=== PATIENT | female | born 1990 | race Caucasian/White ===

== ENCOUNTER 2016-11-19 10:37 | Inpatient (IN) ==
[2016-11-19] MEDS ORDERED: PEPCID PO ONE (17:28)
[2016-11-19] MEDS ORDERED: BRETHINE SUBQ PRN (17:28)
[2016-11-19] MEDS ORDERED: AMBIEN PO PRN (17:28)
[2016-11-19] MEDS ORDERED: TYLENOL PO PRN (17:28)
[2016-11-19] MEDS ORDERED: STADOL IV PRN ×2 (17:28)
[2016-11-19] MEDS ORDERED: PITOCIN 30 UNITS/LR 30 UNITS/500 ML IV.SOLN IV SCH (17:28)
[2016-11-19] MEDS ORDERED: KEFZOL 1 GM/D5W 1 GM/50 ML IVPB IV PRN (17:28)
[2016-11-19] MEDS ORDERED: REGLAN PO ONE (17:28)
[2016-11-19] MEDS ORDERED: LR 1,000 ML IV ONE (17:28)
[2016-11-19] MEDS ORDERED: PEPCID IV PRN (17:28)
[2016-11-19] MEDS ORDERED: PEPCID PO PRN (17:28)
[2016-11-19] MEDS ORDERED: CYTOTEC PO ONE (18:00)
[2016-11-19 18:48] LABS: MANUAL DIFF NEEDED? NO
[2016-11-19 18:52] LABS: URINE SOURCE VOIDED
[2016-11-19 18:58] LABS: BILIRUBIN URINE NEGATIVE (NEGATIVE); BLOOD URINE NEGATIVE (NEGATIVE); CLARITY CLEAR (CLEAR); COLOR YELLOW; GLUCOSE URINE NEGATIVE (NEGATIVE); LEUKOCYTES URINE NEGATIVE (NEGATIVE); NITRITE URINE NEGATIVE (NEGATIVE); PH URINE 6.5; PROTEIN URINE NEGATIVE (NEGATIVE); SP GRAVITY URINE 1.005; UROBILINOGEN URINE NORMAL
[2016-11-19 19:01] LABS: UR AMPHETAMINES QUAL NONE DETECTED (NONE DETECT); UR BARBITUATES QUAL NONE DETECTED (NONE DETECT); UR BENZODIAZEPIN QUAL NONE DETECTED (NONE DETECT); UR CANNABINOIDS QUAL NONE DETECTED (NONE DETECT); UR COCAINE QUAL NONE DETECTED (NONE DETECT); UR MDMA QUAL NONE DETECTED (NONE DETECT); UR METHADONE QUAL NONE DETECTED (NONE DETECT); UR METHAMPHETAMINE QUAL NONE DETECTED (NONE DETECT); UR OPIATES QUAL NONE DETECTED (NONE DETECT); UR OXYCODONE QUAL NONE DETECTED (NONE DETECT); UR PCP QUAL NONE DETECTED (NONE DETECT); UR TCA QUAL NONE DETECTED (NONE DETECT)
[2016-11-19 19:04] LABS: BASO% 0.3 % (0.0-0.8); HEMATOCRIT 34.2 % (37.0-47.0); HEMOGLOBIN 11.7 g/dL (12.0-16.0); IMM GRAN# 0.12 X1000 (0.0-0.04); IMM GRAN% 1.2 % (0.0-0.5); LYMPH# 2.48 X1000 (1.2-3.4); LYMPH% 24.9 % (20.5-51.1); MCH 28.5 PG (27-31); MCHC 34.2 g/dL (33-37); MCV 83.2 FL (81-99); MONO% 9.1 % (1.7-9.3); MPV 11.1 FL (7.4-10.4); NEUT% 63.5 % (42.2-75.2); PLT 195 X1000 (130-400); RBC 4.11 XMIL (4.2-5.4)
[2016-11-19] MEDS: CYTOTEC PO SCH (22:36)
[2016-11-20] MEDS: ZOFRAN IV PRN ×3 (00:18→11:24)
[2016-11-20] MEDS: STADOL IV PRN ×6 (00:18→11:24)
[2016-11-20] MEDS: CYTOTEC PO SCH (02:44)
[2016-11-20] MEDS: LR 1,000 ML IV SCH ×2 (07:37→18:00)
[2016-11-20] MEDS ORDERED: FENTANYL-BUPIV-NS 2 MCG-0.1% 200 ML EPIDURAL PRN (10:31)
[2016-11-20] MEDS ORDERED: XYLOCAINE-MPF 1% INJ ONE (10:41)
[2016-11-20] MEDS ORDERED: MINERAL OIL PO ONE (10:41)
--- NOTE | 2016-11-20 11:06 | HISTORY AND PHYSICAL ---
CHIEF COMPLAINT: Scheduled induction of labor. HISTORY OF PRESENT ILLNESS: Patient is a 26-year-old, G1 at 40 weeks and 2 days by 12-week ultrasound, with a due date of 11/18/2016, who presented last night for Cytotec induction of labor. She was checked in the office yesterday and was noted to be 1 cm with thick cervix and -3 station. She strongly wanted induction. She was counseled about her risks and so she came in the same night for Cytotec. Overnight, she has changed to approximately 2 cm this morning, but has effaced more significantly to 50% and is now -2 station. She denies complaints at this time. Obstetrically, the contractions are more consistent with cramps, but she will desire an epidural in the future. The patient did have an episode this morning where she picked at a lesion on her lip. She states the lesion has been there for several years, but it has been bleeding significantly despite holding pressure. Suspect hemangioma. PAST MEDICAL HISTORY: Migraines without aura. OBSTETRICAL HISTORY: First . PAST SURGICAL HISTORY: Negative. ALLERGIES: No known drug allergies. MEDICATIONS: vitamins and Pepcid AC as needed. FAMILY HISTORY: Heart disease in mother and her father. Diabetes in maternal grandmother. High blood pressure in maternal grandmother. Lung cancer in maternal uncle and paternal grandfather. Unsure ages. Colon cancer in paternal grandmother at age 80. SOCIAL HISTORY: She is a prior smoker "socially". Admitted to less than 2 packs per week and she quit in . Alcohol use occasional when not . Illicit drug use denies during . She used to use marijuana. She currently lives with the father of the baby and is unemployed. PERTINENT LABORATORIES: Group B strep is negative. She passed her Glucola at 118. RPR is nonreactive. Quad screen was low risk. UDS was negative on June 03. Pap smear was within normal limits. HIV was nonreactive. Blood type is O negative, antibody negative. The patient did get her RhoGAM on 08/28/2016, as well as her Tdap at the same time. Hepatitis B nonreactive. RPR nonreactive. Gonorrhea and chlamydia were negative. Urine culture was no growth. PHYSICAL EXAMINATION: VITAL SIGNS: Current vital signs had temperature 96.9 degrees, heart rate 64, respirations 20, blood pressure 109/65. NST is 110, moderate variability, and reactive. Contractions about every 2 minutes on Pitocin. GENERAL APPEARANCE: The patient is awake, alert, oriented, in no acute distress , white female. HEENT: Significant for an inferior edge of lower lip with approximately 1-2 mm bleeding blanchable area that responds to pressure but then continues to bleed afterwards. Suspicious for hemangioma. Now has Surgicel with cessation of active bleeding. HEENT: Otherwise, normal. CHEST: Respirations unlabored. ABDOMEN: Soft, gravid, and nontender. PELVIC: Cervix is 2 cm, 50%, -2. EXTREMITIES: No clubbing, cyanosis, or edema. ASSESSMENT AND PLAN: A 26-year-old, G1, at 40 weeks and 2 days, for induction of labor. 1. Hemangioma on lip. Will continue with Surgicel until all active bleeding stops. May try Dermabond if this does not work. 2. Ultimately plans epidural. May have upon request. GBS is negative. Will plan artificial rupture of membranes when cervix is more dilated. Patient states understanding. cc: Krystina Sumner MD MTDD
[2016-11-20] MEDS ORDERED: BENADRYL IV PRN (20:36)
[2016-11-20] MEDS ORDERED: MINERAL OIL PO PRN (20:36)
[2016-11-20] MEDS ORDERED: BOOSTRIX VACCINE IM ONE (20:36)
[2016-11-20] MEDS ORDERED: M-M-R II VACCINE SUBQ ONE (20:36)
[2016-11-20] MEDS ORDERED: CYTOTEC PO PRN (20:36)
[2016-11-20] MEDS ORDERED: PITOCIN IM PRN (20:36)
[2016-11-20] MEDS ORDERED: AMBIEN PO PRN (20:36)
[2016-11-20] MEDS ORDERED: PERI MEDS (DERMOPLAST/NUPERCAINAL/TUCKS) MISC PRN (20:36)
[2016-11-20] MEDS ORDERED: PITOCIN 30 UNITS/LR 30 UNITS/500 ML IV.SOLN IV ONE (20:36)
[2016-11-20] MEDS ORDERED: BENADRYL PO PRN (20:36)
[2016-11-20] MEDS ORDERED: PITOCIN 20 UNITS/LR 20 UNITS/1,000 ML IV.SOLN IV SCH (20:36)
[2016-11-20] MEDS ORDERED: HYDROXYZINE PO PRN (20:36)
[2016-11-20] MEDS ORDERED: HYDROXYZINE IM PRN (20:36)
[2016-11-20] MEDS ORDERED: XYLOCAINE-MPF 1% INJ PRN (20:36)
[2016-11-20] MEDS: MOTRIN PO PRN (21:22)
[2016-11-20] MEDS: NORCO-5 PO PRN (21:22)
[2016-11-20] MEDS: PERICOLACE PO SCH (21:23)
[2016-11-21] MEDS ORDERED: PEPCID PO ONE (03:14)
[2016-11-21] MEDS: NORCO-5 PO PRN ×2 (03:30→12:42)
[2016-11-21 05:28] LABS: HEMATOCRIT 28.9 % (37.0-47.0); HEMOGLOBIN 9.5 g/dL (12.0-16.0); MCH 27.7 PG (27-31); MCHC 32.9 g/dL (33-37); MCV 84.3 FL (81-99); MPV 10.9 FL (7.4-10.4); RBC 3.43 XMIL (4.2-5.4)
--- NOTE | 2016-11-21 06:51 | OPERATIVE NOTE ---
PROCEDURE DATE: 11/20/2016 PREPROCEDURE DIAGNOSIS: G1 at 40 weeks and 2 days with elective induction of labor at 40 weeks and 2 days. POSTPROCEDURE DIAGNOSIS: G1, P1-0-0-1 status post spontaneous vaginal delivery. DESCRIPTION OF PROCEDURE: The patient was admitted on the evening of the for Cytotec induction secondary to unfavorable cervix. Patient had desired elective induction and she understood her risks of failure to progress. She did get 3 doses of Cytotec and then was started on Pitocin. She underwent artificial rupture of membranes and got an epidural for anesthesia, and then progressed to complete without any problems. She pushed for a very short period of time, and then had a spontaneous vaginal delivery that was controlled of a 7 pounds 10 ounce baby boy. Nuchal cord x1 was reduced after delivery. Baby's 's were 9 at 1 minute, 10 at 5 minutes and was 21 inches long. After delivery, the baby was bulb suctioned. Cord was clamped and cut. Baby was handed off to awaiting nursery staff where the above stats were obtained. Cord blood was obtained and placenta was then gently massaged from the uterus. Uterus was noted to be firm and minimal bleeding from the uterus was noted. Her vagina and perineum were inspected for lacerations. She did have a second-degree introital vaginal laceration but no perineal lacs. This was repaired with a 2-0 Polysorb in a running locked fashion. One or 2 [id number] sutures were then used in the midline to assure hemostasis. Once this was done , all sponge, lap and needle counts were correct x2. Estimated Blood Loss for the procedure was about 300 mL. The patient went to her recovery area in stable condition. cc: Krystina Sumner MD [facility]ENTERAlan
[2016-11-21] MEDS ORDERED: VASELINE TOP ONE (11:55)
[2016-11-21] MEDS ORDERED: MYLICON PO PRN (12:38)
[2016-11-21] MEDS: MOTRIN PO PRN ×2 (12:42→23:03)
[2016-11-21] MEDS ORDERED: EPIFOAM FOAM TOP PRN (16:32)
[2016-11-21] MEDS: PEPCID PO SCH (17:04)
[2016-11-21] MEDS: NORCO-10 PO PRN ×2 (17:05→23:02)
[2016-11-21] MEDS: PERICOLACE PO SCH (20:43)
[2016-11-22] MEDS: NORCO-10 PO PRN ×2 (07:44→11:14)
[2016-11-22] MEDS: MOTRIN PO PRN (07:44)
[2016-11-22] MEDS: PEPCID PO SCH (07:45)
[2016-11-22 08:04] VITALS: BP 103/57
== END 2016-11-22 13:25 | disposition home or self-care (01) ==
LOC: P.LD 17:26 → P.WC 11-21 09:32
PROVIDERS: ADMIT Obstetrics & Gynecology; ATTEND Obstetrics & Gynecology